=== PATIENT | male | born 1990 ===

== ENCOUNTER 2019-11-14 20:05 | Emergency (ER) | payer OTHER ==
[2019-11-15 18:19] LABS: SARS-CoV-2 MS2 Positive; SARS-CoV-2 N Gene Negative; SARS-CoV-2 S Gene Negative; SARS-CoV-2 by NAA Not Detected (NotDetected); SARS-CoV-2 orf1ab Negative
== END 2019-11-14 21:04 | disposition home or self-care (01) ==
LOC: ERS 20:05
DX: Z20.828 Contact with and (suspected) exposure to other viral communicable diseases (principal)
CPT/HCPCS: 87635; 99283; U0003